=== PATIENT | male | born 1975 | race Caucasian/White ===

== ENCOUNTER 2020-10-21 20:17 | Emergency (ER) | payer BC ==
--- NOTE | 2020-10-21 20:39 | EDM.PDOC ---
ED HPI GENERAL MEDICAL PROBLEM - General Chief Complaint: Laceration Stated Complaint: FINGER LACERATION Time Seen by Provider: 10/21/20 20:35 Source of Information: Reports: Patient, Old Records ([facility] chart/EMR) History Limitations: Reports: No Limitations - History of Present Illness INITIAL COMMENTS - FREE TEXT/NARRATIVE: The patient was brought to the emergency room via private automobile by his for evaluation of a laceration on his right hand, which he cut while fixing his motorcycle at home shortly prior to arrival to this facility. No medications or treatment prior to arrival with the patient not injuring this finger in the past. He denies any known foreign body and was wearing gloves. He accidentally cut this finger on some gears as above with no paresthesias, neurological deficits, or other complaints or injuries. He is right-handed. No recent history of abdominal pain, heartburn, nausea, diarrhea, melena, gross hematochezia, or any food intolerance, including fatty foods, etc.. The patient also denies any recent fever, cough, wheezing, dyspnea, etc.. Onset: Today, Sudden Onset Date: 10/21/20 Onset Time: 20:00 Duration: Constant Location: Reports: Upper Extremity, Right. Denies: Head, Face, Neck, Chest, Abdomen, Back, Pelvis, Upper Extremity, Left, Radiates to Quality: Reports: Same as Previous Episode, Sharp, Throbbing Severity: Moderate Improves with: Reports: None Worsens with: Reports: None Context: Reports: Trauma (As above) Associated Symptoms: Denies: Confusion, Chest Pain, Cough, Diaphoresis, Fever/Chills, Headaches, Loss of Appetite, Nausea/Vomiting, Rash, Shortness of Breath, Syncope, Weakness Treatments RESEARCH PSYCHOLOGIST: Reports: Other (see below) (None) Right Finger-Middle Pain Score (Numeric/FACES): 7 - Related Data Allergies Allergy/AdvReac Type Severity Reaction Status Date / Time amoxicillin Allergy Hives Verified 10/21/20 20:23 Penicillins Allergy Hives Verified 10/21/20 20:23 Home Meds: Home Meds Meloxicam 15 mg PO DAILY 10/21/20 [History] Pramipexole [Mirapex] 0.25 mg PO DAILY 10/21/20 [History] Past Medical History HEENT History: Reports: Other (See Below) Other HEENT History: Nasal fracture and left zygomatic arch fracture 1983. Cardiovascular History: Reports: None Respiratory History: Reports: None Gastrointestinal History: Reports: Fatty Liver, Other (See Below). Denies: Hepatitis, Pancreatitis Other Gastrointestinal History: Fatty liver by CT scan. Benign right-sided hepatic hemangioma. Musculoskeletal History: Reports: Arthritis, Back Pain, Chronic, Osteoarthritis, Other (See Below) Other Musculoskeletal History: Left clavicular fracture in 2008. Fractures of digits #3, 4, and 5 of the left hand in 1996. Proximal left radial fracture 1996. Digit #1 right foot fracture in the early . Neurological History: Reports: Concussion, Head Trauma, Other (See Below) Other Neuro History: Head concussion secondary to football injury in 1994. Psychiatric History: Reports: None Endocrine/Metabolic History: Reports: None Hematologic History: Reports: None. Denies: Anemia, Blood Transfusion(s) Immunologic History: Reports: None Oncologic (Cancer) History: Reports: None Dermatologic History: Reports: None - Infectious Disease History Infectious Disease History: Reports: Chicken Pox, Other (See Below). Denies: C- Difficile, MRSA, Mumps, VRE Other Infectious Disease History: Fifth's disease as an adult. - Past Surgical History HEENT Surgical History: Reports: Oral Surgery, Visual Other HEENT Surgeries/Procedures: [place] teeth extraction at about age 17. GI Surgical History: Reports: Other (See Below) Other GI Surgeries/Procedures: Hemorrhoidectomy in October 2013. Musculoskeletal Surgical History: Reports: Arthroscopic Knee, Arthroscopic Procedure, ORIF, Other (See Below) Other Musculoskeletal Surgeries/Procedures:: Left-sided meniscal repair on 05/22/2014 with previous arthroscopic repair 1993. Right-sided arthroscopic knee surgery 2004. ORIF of left sided clavicular fracture x2 in 2008. Right inguinal tendon repair in 1992. - Past Imaging History Past Imaging History: Reports: CAT Scan (CT of the facial and neck region on 07/28/2014. CT of the abdomen and pelvis on 06/17/2014.), MRI (MRI of the left shoulder on 10/19/2020. MRI of the thoracic spine on 04/15/2019. MRI of the left knee on 04/08/2014.), Ultrasound (Gallbladder ultrasound on 06/11/2014.) Social & Family History - Tobacco Use Tobacco Use Status *Q: Current Every Day Tobacco User Tobacco Use Within Last Twelve Months: Cigarettes Years of Tobacco use: 27 Packs/Tins Daily: 1 Packs/Tins Daily Comment: Started smoking at age 18. Used Tobacco, but Quit: No Smoking Cessation Information Provided To Patient: Yes Second Hand Smoke Exposure: Yes Source of Second Hand Smoke Exposure: smokes Second Hand Smoke Education Provided: Yes - Alcohol Use Alcohol Use History: No Days Per Week of Alcohol Use: 0 Number of Drinks Per Day: 0 Number of Drinks Per Day Comment: No previous DWIs, problems with alcohol abuse, etc. Total Drinks Per Week: 0 Alcohol Use in Last Twelve Months: No - Recreational Drug Use Recreational Drug Use: Yes Drug Use in Last 12 Months: No Recreational Drug Type: Reports: Marijuana/Hashish (Experimental as a teenager.). Denies: Amphetamines (Speed), Cocaine, Heroin, Inhalants (Glues, Solvents, Aerosols), LSD (Acid), Methamphetamine, Morphine, Oxycodone - Living Situation & Occupation Living situation: Reports: (2015, 1 child), with Family Occupation: Employed ([email or web address]) ED ROS GENERAL - Review of Systems Review Of Systems: Comprehensive ROS is negative, except as noted in HPI. ED EXAM, SKIN/RASH Exam: See Below Exam Limited By: No Limitations General Appearance: Alert, WD/WN, No Apparent Distress Head: Atraumatic, Normocephalic Neck: Normal Inspection, Supple, Non-Tender, Full Range of Motion. No: Lymphadenopathy (L), Lymphadenopathy (R), Thyromegaly Respiratory/Chest: No Respiratory Distress, Lungs Clear, Normal Breath Sounds, No Accessory Muscle Use, Chest Non-Tender. No: Pleural Rub, Retractions Cardiovascular: Normal Peripheral Pulses, Regular Rate, Rhythm, No Edema, No Gallop, No JVD, No Murmur, No Rub. No: Gallop/S3, Gallop/S4, Friction Rub Peripheral Pulses: 2+: Radial (L), Radial (R) GI/Abdominal: Normal Bowel Sounds, Soft, Non-Tender, No Organomegaly, No Distention, No Abnormal Bruit, No Mass, Pelvis Stable. No: Guarding (Male) Exam: Deferred Rectal (Males) Exam: Deferred Back Exam: Normal Inspection, Full Range of Motion. No: CVA Tenderness (L), CVA Tenderness (R), Muscle Spasm Extremities: Normal Range of Motion, No Pedal Edema, Normal Capillary Refill, Other (Multiple lacerations over the distal aspect of digit #3 of the right hand with no foreign body, crepitation, deformity, or evidence of fracture. Multiple irregular macerated lacerations over the distal aspect of digit #3 of the right hand including a 1.5 cm laceration over the extensor region with no nail involvement and an additional 3.5 cm and 1.5 cm laceration over the palmar aspect.). No: Non-Tender (Mild to moderate palpation pain over laceration sites), Joint Swelling, Meek's Sign Neurological: Alert, Oriented, CN II-XII Intact, Normal Cognition, Normal Gait, Normal Reflexes, No Motor/Sensory Deficits Skin: Warm, Normal Color, No Rash, Tattoo(s), Wound/Incision (As above). No: Diaphoretic Location, Skin: Upper Extremity, Right Characteristics: Other (As above) Associated features: Tenderness (As above) Lymphatic: No Adenopathy ED SKIN PROCEDURES - Laceration/Wound Repair Right Medial Ventral Digit - 3rd (Middle) Appearance: Subcutaneous, Mildly Contaminated Distal NVT: Neuro & Vascular Intact, No Tendon Injury Anesthetic Type: Local Local Anesthesia - Lidocaine (Xylocaine): 1% Plain Local Anesthetic Volume: 3cc Skin Prep: Providone-Iodine (Betadine) Saline Irrigation (cc's): 0 Exploration/Debridement/Repair: Wound Explored, In a Bloodless Field, Explored to Base, No Foreign Material Found, Multiple Flaps Aligned Closed with: Sutures Lac/Wound length In cm: 3.5 Suture Size: 4-0 # of Sutures: 7 Suture Type: Nylon, Interrupted, Simple Drain Placement: No Sterile Dressing Applied: Nurse Tetanus Status Addressed: Yes Complications: No Right Lateral Distal Ventral Digit - 3rd (Middle) Appearance: Subcutaneous, Mildly Contaminated Distal NVT: Neuro & Vascular Intact, No Tendon Injury Anesthetic Type: Local Local Anesthesia - Lidocaine (Xylocaine): 1% Plain Local Anesthetic Volume: 3cc Skin Prep: Providone-Iodine (Betadine) Saline Irrigation (cc's): 0 Exploration/Debridement/Repair: Wound Explored, In a Bloodless Field, Explored to Base, No Foreign Material Found, Multiple Flaps Aligned Closed with: Sutures Lac/Wound length In cm: 1.5 Suture Size: 4-0 # of Sutures: 3 Suture Type: Nylon, Interrupted, Simple Drain Placement: No Sterile Dressing Applied: Nurse Tetanus Status Addressed: Yes Complications: No Right Distal Dorsal Digit - 3rd (Middle) Appearance: Subcutaneous, Mildly Contaminated Distal NVT: Neuro & Vascular Intact, No Tendon Injury Anesthetic Type: Local Local Anesthesia - Lidocaine (Xylocaine): 1% Plain Local Anesthetic Volume: 3cc Skin Prep: Providone-Iodine (Betadine) Saline Irrigation (cc's): 0 Exploration/Debridement/Repair: Wound Explored, In a Bloodless Field, Explored to Base, No Foreign Material Found, Multiple Flaps Aligned Closed with: Sutures Lac/Wound length In cm: 1.5 Suture Size: 4-0 # of Sutures: 3 Suture Type: Nylon, Interrupted, Simple Drain Placement: No Sterile Dressing Applied: Nurse Tetanus Status Addressed: Yes Complications: No Course - Vital Signs Last Recorded V/S: Last Vital Signs Temp 36.7 C 10/21/20 20:28 Pulse 83 10/21/20 20:28 Resp 12 10/21/20 20:28 BP 128/93 H 10/21/20 20:28 Pulse Ox 98 10/21/20 20:28 Vital Signs - 24 hr 10/21/20 20:28 Temperature [ 36.7 C Temporal] Pulse, 83 Peripheral [ Left Pulse Oximetry] Respiratory 12 Rate Blood Pressure 128/93 H [Left Upper Arm ] O2 Sat by Pulse 98 Oximetry - Orders/Labs/Meds Orders: Active Orders 24 hr Category Date Time Status Vaccines to be Administered [RC] PER UNIT ROUTINE Care 10/21/20 20:40 Active Obtain Past Medical Record [OM.PC] Routine Oth 10/21/20 20:39 Active Labs: None Meds: Medications Discontinued Medications Generic Name Dose Route Start Last Admin Trade Name Sebastian PRN Reason Stop Dose Admin Diphtheria/Tetanus/Acell Pertussis 0.5 ml 10/21/20 20:39 10/21/20 21:16 Boostrix IM 10/21/20 20:40 0.5 ml .ONCE ONE Administration Lidocaine HCl 5 ml 10/21/20 20:40 10/21/20 20:44 Xylocaine-Mpf 1% INJECT 10/21/20 20:41 5 ml ONETIME ONE Administration Lidocaine HCl Confirm 10/21/20 21:09 Xylocaine-Mpf 1% Administered 10/21/20 21:10 Dose 5 ml .ROUTE .STK-MED ONE Neomycin/Polymyxin/Bacitracin 1 each 10/21/20 20:40 10/21/20 21:16 Triple Antibiotic Oint TOP 10/21/20 20:41 1 each ONETIME ONE Administration - Radiology Interpretation Free Text/Narrative:: None Departure - Departure Time of Disposition: 21:33 Disposition: Home, Self-Care 01 Condition: Good Clinical Impression: Tobacco abuse counseling, Laceration Osteoarthritis Qualifiers: Osteoarthritis location: multiple joints Osteoarthritis type: primary Qualified Code(s): M89.49 - Other hypertrophic osteoarthropathy, multiple sites - Discharge Information *PRESCRIPTION DRUG MONITORING PROGRAM REVIEWED*: Not Applicable *COPY OF PRESCRIPTION DRUG MONITORING REPORT IN PATIENT DAVID: Not Applicable Instructions: Steps to Quit Smoking, [id number], Health Risks of Smoking, Laceration Care, Adult, [id number], Sutures, Ernestine, or Adhesive Wound Closure, [id number] Forms: ED Department Discharge Additional Instructions: 1. Follow up with your regular provider in 10-14 days for suture removal as directed. Bring these discharge instructions with you to that visit. 2. Antibacterial soap wash/soak with subsequent antibacterial dressing such as Neosporin, etc. as directed 2 times per day until the wound or laceration site completely heals. Keep the area clean and dry with activity restrictions as discussed. Never use hydrogen peroxide for wound care. 3. Work excuse- See Form 4. Stop all tobacco use MAIKEL as directed/per provided information and consider contacting Quit LIne, etc.. 5. Immediately after this visit verify that your cellular telephone's voicemail has been activated and is empty. Also verify that your home telephone's answering machine is operating properly and has space to receive messages. Note that it is sometimes necessary for us to be able to contact you at a later date to discuss your medical care. 6. Please remember that we are ALWAYS here for you and want to answer any questions you may have. Feel free to call the hospital any time and we call you back MAIKEL. Sepsis Event Note (ED) - Evaluation Sepsis Screening Result: No Definite Risk - Focused Exam Vital Signs: Vital Signs Temp Pulse Resp BP Pulse Ox 10/21/20 20:28 36.7 C 83 12 128/93 H 98 - Problem List & Annotations (1) Laceration SNOMED Code(s): 308039690 Code(s): HMS1450 - Status: Acute Priority: High Onset Date: 10/21/20 Annotation/Comment:: Excellent results with laceration repair as above. DTaP was given with last TDAP on 04/20/2011 per GENNY. Bobcat work excuse was provided. Wound care, activity restrictions, etc. were extensively discussed. (2) Tobacco abuse counseling SNOMED Code(s): 273112467, 901195732, 440383395 Code(s): Z71.6 - TOBACCO ABUSE COUNSELING Status: Chronic Priority: Medium Annotation/Comment:: Tobacco cessation once again strongly encouraged tobacco cessation information provided. (3) Osteoarthritis SNOMED Code(s): 249008746 Code(s): M19.90 - UNSPECIFIED OSTEOARTHRITIS, UNSPECIFIED SITE Status: Chronic Priority: Medium Annotation/Comment:: Otherwise stable by history. Note the patient is currently undergoing physical therapy for left shoulder tendinitis. Qualifiers: Osteoarthritis location: multiple joints Osteoarthritis type: primary Qualified Code(s): M89.49 - Other hypertrophic osteoarthropathy, multiple sites - Problem List Review Problem List Initiated/Reviewed/Updated: Yes - My Orders Last 24 Hours: My Active Orders 10/21/20 20:39 Obtain Past Medical Record [OM.PC] Routine 10/21/20 20:40 Vaccines to be Administered [RC] PER UNIT ROUTINE - Assessment/Plan Last 24 Hours: My Active Orders 10/21/20 20:39 Obtain Past Medical Record [OM.PC] Routine 10/21/20 20:40 Vaccines to be Administered [RC] PER UNIT ROUTINE Assessment:: As above Plan: As above. Extensive precautions were given to the patient, who is in agreement with the treatment plan. See Patient Instructions for further treatment and plan.
[2020-10-21] MEDS: Diphtheria,Pertussis(Acell),Tetanus Vaccine 0.5 ML Syringe IM ONE (21:16)
[2020-10-21] MEDS: Bacitracin/Neomycin/Polymyxin B Oint 0.9 GM U/D Packet TOP ONE (21:16)
== END 2020-10-21 21:34 | disposition home or self-care (01) ==
LOC: LL.ED 20:17
DX: S61.212A Laceration without foreign body of right middle finger without damage to nail, initial encounter (principal); M89.49 Other hypertrophic osteoarthropathy, multiple sites; Z71.6 Tobacco abuse counseling; Z88.0 Allergy status to penicillin; Z79.899 Other long term (current) drug therapy; Z72.0 Tobacco use; Z23 Encounter for immunization; W26.8XXA Contact with other sharp object(s), not elsewhere classified, initial encounter; Y92.009 Unspecified place in unspecified non-institutional (private) residence as the place of occurrence of the external cause
CPT/HCPCS: 12002; 90471; 90715; 99282-25; 99283

== ENCOUNTER 2023-02-03 20:44 | Emergency (ER) | payer BC ==
[2023-02-03] MEDS ORDERED: Lidocaine 1% 5 ML VIAL ONE (20:58)
[2023-02-03] MEDS ORDERED: Lidocaine 1% 5 ML VIAL INJECT ONE (20:59)
[2023-02-03] MEDS ORDERED: Bacitracin/Neomycin/Polymyxin B Oint 0.9 GM U/D Packet TOP ONE (21:18)
[2023-02-03] MEDS ORDERED: Take Home: Doxycycline 100 MG Cap, 4 Cap Pack PO ONE (21:21)
== END 2023-02-03 21:45 | disposition home or self-care (01) ==
LOC: LL.ED 20:44
DX: S91.124A Laceration with foreign body of right lesser toe(s) without damage to nail, initial encounter (principal); Z88.0 Allergy status to penicillin; W27.0XXA Contact with workbench tool, initial encounter; Y93.01 Activity, walking, marching and hiking
CPT/HCPCS: 12001; 99282; 99283; A9270-GY; J3490